=== PATIENT | female | born 1955 | race Caucasian/White ===

== ENCOUNTER → 2017-02-09 | Outpatient (CLI) | payer BC | LOC: MC.RAD 11:00 | DX: Z12.31 Encounter for screening mammogram for malignant neoplasm of breast (principal); R92.1 Mammographic calcification found on diagnostic imaging of breast ==

== ENCOUNTER → 2018-03-21 | Outpatient (CLI) | payer BC | LOC: MC.RAD 09:25 | DX: Z12.31 Encounter for screening mammogram for malignant neoplasm of breast (principal) ==

== ENCOUNTER → 2019-03-27 | Outpatient (CLI) | payer MEDICARE, BC | LOC: MC.RAD 09:11 | DX: Z12.31 Encounter for screening mammogram for malignant neoplasm of breast (principal); Z78.0 Asymptomatic menopausal state ==

== ENCOUNTER → 2020-03-30 | Outpatient (CLI) | payer MEDICARE, BC | LOC: MC.RAD 09:21 | DX: Z12.31 Encounter for screening mammogram for malignant neoplasm of breast (principal) ==

== ENCOUNTER → 2021-05-17 | Outpatient (CLI) | payer MEDICARE, BC | LOC: MC.RAD 09:30 | DX: Z12.31 Encounter for screening mammogram for malignant neoplasm of breast (principal); Z78.0 Asymptomatic menopausal state ==

== ENCOUNTER → 2022-06-26 | Outpatient (CLI) | payer MEDICARE, BC | LOC: MC.RAD 12:59 | DX: Z12.31 Encounter for screening mammogram for malignant neoplasm of breast (principal) ==

== ENCOUNTER 2022-08-16 10:38 | Observation (INO) | payer MEDICARE, BC ==
[~2022-08-16] VITALS: Ht 154.9 cm; Wt 67.3 kg
[2022-08-16 10:58] LABS: BASO # 0.1 K/mm3 (0.0-0.2); BASO % 0.8 % (0.0-2.0); EOS # 0.2 K/mm3 (0.0-0.7); GRAN # 4.5 K/mm3 (1.4-6.5); GRAN % 60.9 % (42.2-75.2); HEMATOCRIT 42.7 % (37.0-47.0); HEMOGLOBIN 14.7 g/dl (12.5-16.0); LYMPH % 26.9 % (20.0-51.0); MEAN CELL VOLUME 87 fl (80.0-100.0); MEAN CORPUSCULAR HEMOGLOBIN 30 pg (27-31); MEAN CORPUSCULAR HGB CONC 34 g/dl (33.0-37.0); MEAN PLATELET VOLUME 9.1 fl (7.4-10.4); MONO # 0.7 K/mm3 (0.1-0.6); MONO % 9.1 % (1.7-9.3); PLATELET COUNT 300 K/mm3 (130-400); RED BLOOD COUNT 4.91 M/mm3 (4.10-5.30); REDCELL DISTRIBUTION WIDTH-CV 12.9 % (11.5-14.5)
[2022-08-16] MEDS ORDERED: FOSAMAX 70MG TA70 MG PO (10:58)
[2022-08-16] MEDS ORDERED: ZOCOR 40MG40 MG PO (10:58)
[2022-08-16] MEDS ORDERED: PRINIVIL20 MG PO (10:58)
[2022-08-16 11:11] LABS: ALANINE AMINOTRANSFERASE 17 U/L (0-55); ALBUMIN 3.8 gm/dL (3.4-4.8); ALKALINE PHOSPHATASE 59 U/L (40-150); ANION GAP 12 mmol/L (7-16); AST,SGOT 22 U/L (5-34); BILIRUBIN,TOTAL 0.6 mg/dL (0.2-1.2); BLOOD UREA NITROGEN 16 mg/dL (10-20); CALCIUM 9.5 mg/dL (8.4-10.2); CARBON DIOXIDE 21 mmol/L (23-31); CHLORIDE 107 mmol/L (98-107); CREATININE, serum 0.94 mg/dL (0.57-1.11); GLUCOSE 101 mg/dL (70-99); POTASSIUM 3.8 mmol/L (3.5-4.5); SODIUM 140 mmol/L (136-145); TOTAL PROTEIN 7.2 gm/dL (6.2-8.1)
[2022-08-16 11:14] LABS: COLLECTION METHOD CLEAN CATCH
[2022-08-16 11:25] LABS: MUCOUS Present (NOT PRESENT); SQUAMOUS EPITHELIAL 0-2 /hpf (0-10); URINE BACTERIA None Seen /hpf (NONE SEEN)
[2022-08-16 11:27] LABS: URINE APPEARANCE Clear (CLEAR/HAZY); URINE BLOOD TRACE-LYSED (NEGATIVE); URINE COLOR Yellow (YELLOW); URINE GLUCOSE Negative (NEGATIVE); URINE KETONE TRACE (NEGATIVE); URINE NITRATE Negative (NEGATIVE); URINE PROTEIN(semi-quant) Negative (NEGATIVE); URINE UROBILINOGEN 0.2 (NEGATIVE)
[2022-08-16 11:31] LABS: TSH w REFLEX 2.422 uIU/mL (0.350-4.940)
[2022-08-16 11:32] LABS: TROPONIN-I < 0.010 ng/mL (0.00-0.033)
--- NOTE | 2022-08-16 14:28 | NUR ---
PT ADMITTED TO MEDICAL UNIT. ADMISSION INTAKE AND ASSESSMENT COMPLETED. MED REC UPDATED. AT BEDSIDE. DENIES ANY PAIN OR NEEDS. ACUTE CONFUSION/MEMORY PROBLEMS. CALL LIGHT WITHIN REACH. WILL CONTINUE TO MONITOR.
[2022-08-16 17:00] VITALS: BP 146/70; PULSE 79; TEMP 98.3
[2022-08-16 20:10] VITALS: BP 143/71; PULSE 74; TEMP 98.1
--- NOTE | 2022-08-16 22:27 | NUR ---
183 - PATIENT LAYING IN BED WATCHING TELEVISION WITH THE SOUND OFF AND STATES TEHRE IS CLICKING AND THATS WHY SOUND IS OFF. PATIENT DENIES PAIN, NEEDS OR CONCERNS AT THIS TIME. PATIENT HAS CALL LIGHT WITHIN REACH. 1920 - DR. HU IN WITH PATIENT AT THIS TIME. 1999 - PATIENT LAYING IN BED WATCHING TELEVISION. PATIENT DENIES PAIN, NEEDS OR CONCERNS AT THIS TIME. PATIENT REMAINS TO HAVE CALL LIGHT WITHIN REACH. PATIENT ENCOUARGED TO USE CALL LIGHT WITH ANY NEEDS OR CONCERNS. PATIENT STATES UNDESTANDING.
[2022-08-16 23:59] VITALS: BP 103/59; PULSE 74; TEMP 98.3
[2022-08-17 04:12] VITALS: BP 113/70; PULSE 64; TEMP 98.9
--- NOTE | 2022-08-17 05:41 | NUR ---
PATIENT HAS HAD AN UNEVENTFUL NIGHT. PATIENT REMEMBERED TO CALL THIS NURSE REQUESTED AFTER 2 1/2 HOURS. PATIENT SHOWED NO SIGNS OR SYMPTOMS OF ISSUES OR CONCERNS. CALL LIGHT REMAINED WITHIN REACH OF PATIENT.
[2022-08-17 06:23] LABS: BASO % 0.6 % (0.0-2.0); EOS # 0.1 K/mm3 (0.0-0.7); EOS % 1.9 % (0.0-4.0); GRAN # 4.2 K/mm3 (1.4-6.5); GRAN % 62.7 % (42.2-75.2); HEMATOCRIT 39.4 % (37.0-47.0); LYMPH # 1.7 K/mm3 (1.2-3.4); MEAN CELL VOLUME 91 fl (80.0-100.0); MEAN CORPUSCULAR HEMOGLOBIN 30 pg (27-31); MEAN CORPUSCULAR HGB CONC 33 g/dl (33.0-37.0); MEAN PLATELET VOLUME 9.5 fl (7.4-10.4); MONO # 0.6 K/mm3 (0.1-0.6); MONO % 9.5 % (1.7-9.3); PLATELET COUNT 264 K/mm3 (130-400); RED BLOOD COUNT 4.35 M/mm3 (4.10-5.30); REDCELL DISTRIBUTION WIDTH-CV 13.1 % (11.5-14.5)
[2022-08-17 06:39] LABS: CHOLESTEROL RISK RATIO 3.2
[2022-08-17 07:42] VITALS: BP 137/83; PULSE 76; TEMP 99
--- NOTE | 2022-08-17 07:52 | NUR ---
PATIENT ALERT AND AWAKE, ORIENTED X3. NO ISSUES OR COMPLAINTS. PATIENT CURRENTLY RESTING IN BED. IV FLUIDS INFUSING. CALL LIGHT WITHIN REACH.
--- NOTE | 2022-08-17 09:02 | NUR ---
EARL IN MRI INFORMED THIS RN MRI BRAIN UNABLE TO BE DONE UNTIL END OF DAY. GEORGE ELLIOTT PATIENT IS SCHEDULED TO HAVE LOOP RECORDER PLACEMENT AT 10:00-10:15 AM. SHE STATED THAT MAY BE AN ISSUE, HOWEVER SHE WILL CHECK WITH HER SUPERIOR AND GIVE ME A CALL BACK.
--- NOTE | 2022-08-17 09:15 | NUR ---
PATIENT TAKEN TO MRI. TELE MONITOR NOTIFIED.
--- NOTE | 2022-08-17 10:02 | NUR ---
Initial visit; Patient thanked Care Director for offering God's blessings and to keep patient in her prayers.
--- NOTE | 2022-08-17 11:17 | NUR ---
Bottle Washing Machine Operator met with patient and patient's , Kamlesh (ph#[phone]) to discuss discharge planning. Patient lives outside of [place] and sees Dr. Cummins for primary care. Patient obtains medications from [facility] with no difficulties and does not normally use any DME, but reports she does have a cane at home. Patient is normally independent with ADLS and plans to return home at time of discharge. Patient reports she has completed DPOA- documents which designate her , Kamlesh. Discharge Plan: Home
--- NOTE | 2022-08-17 11:41 | NUR ---
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 PATIENT WITH NO NEEDS OR COMPLAINTS AT THIS TIME. LOOP RECORDER SITE DRESSING IS CLEAN DRY AND INTACT. POST OP VITALS INITIATED. CALL LIGHT WITH IN REACH. MD CURRENTLY AT BEDSIDE. WILL CONT TO MONITOR.
[2022-08-17] MEDS ORDERED: CEPHALEXIN500 M1 PO (11:42)
[2022-08-17] MEDS ORDERED: ASPIRIN 81M81 MG/TA2 PO (11:42)
[2022-08-17] MEDS ORDERED: TOPROL XL 25MG25 MG PO (11:42)
[2022-08-17 11:46] VITALS: BP 140/70; PULSE 67; TEMP 97.9
[2022-08-17 12:00] VITALS: BP 139/72; PULSE 69; TEMP 97.9
--- NOTE | 2022-08-17 14:30 | NUR ---
PATIENT GIVEN DISCHARGE INSTRUCTIONS AND EDUCATION. ALL QUESTIONS ANSWERED. LOOP RECORDER INCISION SITE DRRESSING CLEAN DRY AND INTACT.
--- NOTE | 2022-08-17 15:04 | NUR ---
PATIENT TAKEN DOWN VIA WHEELCHAIR BY THIS RN. PATIENT LEFT INSTABLEL CONDITION IN THE CARE OF HER .
--- NOTE | 2022-08-17 15:04 | NUR ---
IV AND TELE DISCONTINUED.
== END 2022-08-17 15:25 | disposition home or self-care (01) ==
LOC: COL.ER 10:38 → MEDICAL 13:21
PROVIDERS: Emergency Medicine; ADMIT Internal Medicine
DX: G45.4 Transient global amnesia (principal); I10 Essential (primary) hypertension; E78.5 Hyperlipidemia, unspecified; I47.1 Supraventricular tachycardia; I49.1 Atrial premature depolarization; Z20.822 Contact with and (suspected) exposure to COVID-19; Z79.82 Long term (current) use of aspirin
CPT/HCPCS: A9575; C1764; G0378; J1650; J2704; J7030; Q9967

== ENCOUNTER → 2023-06-29 | Outpatient (CLI) | payer MEDICARE, BC ==
[~2023-06-29] MED LIST: ASPIRIN 81M81 MG/TA2 PO; CEPHALEXIN500 M1 PO; FOSAMAX 70MG TA70 MG PO; PRINIVIL20 MG PO; TOPROL XL 25MG25 MG PO; ZOCOR 40MG40 MG PO
== END ==
LOC: MC.RAD 08:55
DX: Z12.31 Encounter for screening mammogram for malignant neoplasm of breast (principal)

== ENCOUNTER → 2024-06-30 | Outpatient (CLI) | payer MEDICARE, BC | LOC: MC.RAD 05:54 | DX: Z12.31 Encounter for screening mammogram for malignant neoplasm of breast (principal) ==